=== PATIENT | male | born 1990 | race American Indian/Alaskan Native ===

== ENCOUNTER 2017-02-25 07:53 | Emergency (ER) | payer BC, OTHER ==
[2017-02-25 08:28] LABS: Basophils % (Auto) 1.1 % (0.0-1.8); Eosinophils % (Auto) 1.5 % (0.0-4.3); Hematocrit 48.3 % (35.5-45.6); Hemoglobin 16.5 gm/dl (11.8-15.2); Mean Corpuscular HGB Conc 34 % (32-34); Mean Corpuscular Hemoglobin 29 pg (28-32); Mean Corpuscular Volume 84 fl (84-94); Platelet Count 166 K/mm3 (140-440); Red Blood Count 5.72 M/mm3 (3.65-5.03); Red Cell Distribution Width 13.4 % (13.2-15.2); White Blood Count 5.9 K/mm3 (4.5-11.0)
[2017-02-25 08:47] LABS: Anion Gap 17 mmol/L; BUN/Creatinine Ratio 9.16; Blood Urea Nitrogen 11 mg/dL (9-20); Calcium 9.3 mg/dL (8.4-10.2); Carbon Dioxide 26 mmol/L (22-30); Chloride 102.2 mmol/L (98-107); Glucose 94 mg/dL (75-100); Potassium 3.9 mmol/L (3.6-5.0); Sodium 141 mmol/L (137-145)
[2017-02-25 09:10] LABS: Urine Drugs of Abuse Note Disclamer
[2017-02-25 09:28] LABS: Bilirubin,Urine NEG (Negative); Blood,Urine NEG (Negative); Ketones,Urine TR mg/dL (Negative); Leukocyte Esterase,Urine NEG (Negative); Nitrite,Urine NEG (Negative)
[2017-02-25 09:42] LABS: RBC,Urine < 1.0 /HPF (0.0-6.0); WBC,Urine < 1.0 /HPF (0.0-6.0)
--- NOTE | 2017-02-25 10:39 | Emergency Department Report ---
HPI - General Chief Complaint: Psych Time Seen by Provider: 02/25/17 10:00 - HPI HPI: This is a 26-year-old Afro-[place]rit[place] male presents to the emergency department with complaint of suicidal ideations and what he says is an attempt in which he held a gun up to his head. He denies any psychiatric diagnosed history of depression, bipolar disorder schizophrenia or anything else. He denies any past medical history. He says that he is just generally upset about "life." He has never been to a inpatient psychiatric facility. He does not have a primary care physician or a psychiatrist. Denies any tobacco abuse or any current alcohol use. He admits to marijuana smoking. ED Past Medical Hx - Past Medical History Previous Medical History?: Yes Additional medical history: irregular heart beat - Surgical History Additional Surgical History: shoulder - Social History Smoking Status: Never Smoker Substance Use Type: Marijuana - Medications Home Medications: Home Medications Medication Instructions Recorded Confirmed Last Taken Type No Known Home Medications [No 02/25/17 02/25/17 Unknown History Reported Home Medications] ED Review of Systems ROS: Stated complaint: EVALUATION Other details as noted in HPI Comment: All other systems reviewed and negative Constitutional: denies: chills, fever Eyes: denies: eye pain, eye discharge, vision change ENT: denies: ear pain, throat pain Respiratory: denies: cough, shortness of breath, wheezing Cardiovascular: denies: chest pain, palpitations Gastrointestinal: denies: abdominal pain, nausea, diarrhea Genitourinary: denies: urgency, dysuria Musculoskeletal: denies: back pain, joint swelling, arthralgia Skin: denies: rash, lesions Neurological: denies: headache, weakness, paresthesias Psychiatric: depression, suicidal thoughts. denies: auditory hallucinations, visual hallucinations, homicidal thoughts Physical Exam - Physical Exam Vital Signs: Vital Signs 02/25/17 02/25/17 07:58 08:48 Temperature 98.1 F Pulse Rate 73 Respiratory 18 18 Rate Blood Pressure 135/94 O2 Sat by Pulse 100 Oximetry Physical Exam: GENERAL: The patient is well-developed well-nourished. HEENT: Normocephalic. Atraumatic. Extraocular motions are intact. Patient has moist mucous membranes. Pupils equal reactive to light bilaterally. NECK: Supple. Trachea is midline. CHEST/LUNGS: Clear to auscultation. There is no respiratory distress noted. HEART/CARDIOVASCULAR: Regular. There is no tachycardia. There is no gallop rub or murmur. ABDOMEN: Abdomen is soft, nontender. Patient has normal bowel sounds. There is no abdominal distention. SKIN: Skin is warm and dry. NEURO: The patient is awake, alert, and oriented. The patient is cooperative. The patient has no focal neurologic deficits. The patient has normal speech. MUSCULOSKELETAL: There is no tenderness or deformity. There is no limitation range of motion. There is no evidence of acute injury. PSYCH: Flat affect. ED Course Vital Signs 02/25/17 02/25/17 07:58 08:48 Temperature 98.1 F Pulse Rate 73 Respiratory 18 18 Rate Blood Pressure 135/94 O2 Sat by Pulse 100 Oximetry ED Medical Decision Making - Lab Data Result diagrams: 02/25/17 08:11 02/25/17 08:11 - Medical Decision Making 26-year-old male presents to the emergency department with a complaint of suicidal ideations and questionable attempt in which she had a gun up to his head. He has visible flat affect and appears depressed. His vital signs and stable throughout his ED course. Labs do not show any etiology of the patient' s symptoms are most unremarkable. He is medically cleared for psychiatric placement and has been made a 1013 secondary to his suicidal ideations. - Differential Diagnosis depression, bipolar disorder, substance abuse, schizophrenia Critical Care Time: No Critical care attestation.: If time is entered above; I have spent that time in minutes in the direct care of this critically ill patient, excluding procedure time. ED Disposition Clinical Impression: Suicidal ideations Depression Qualifiers: Depression Type: unspecified Qualified Code(s): F32.9 - Major depressive disorder, single episode, unspecified Disposition: [id number]/[id number] PSY HOSP/PSY UNIT Is pt being admited?: No Condition: Stable Referrals: PRIMARY CARE [Primary Care Provider] - 3-5 Days Time of Disposition: 11:18
--- NOTE | 2017-02-25 16:33 | Consultation ---
History of Present Illness - Reason for Consult Consult date: 02/25/17 Reason for consult: psychiatric evaluation, suicidal ideation with a plan - Chief Complaint Chief complaint: "I have been confrontational" This is a 26-year-old Afro-[place]and[place] male presents to the emergency department with complaint of suicidal ideation. He states he held a gun to his head. He also states is not the first time he has done it. He reports he never previously told anyone. He has never received mental health treatment. No previous psychiatric hospitalizations. Rohini's been depressed since he spent in college. He reports feeling like a failure, depressed mood, poor appetite, decreased sleep, weight loss, and is quite guarded on exam. He graduated from college and he is employed at [employer]. Denies any current alcohol use. He admits to smoking marijuana. There is some spiritual preoccupation on exam but difficult to obtain additional information since he is guarded. He states that having mental health problems is an embarrassment. He did not make eye contact during the interview. He was dysphoric. He denies psychotic symptoms. Denies homicidal ideation. He states his mood is up and down but does not describe manic symptoms. Following information was obtained from the record and the patient reports the same: - Past Medical History Previous Medical History?: Yes Additional medical history: irregular heart beat - Surgical History Additional Surgical History: shoulder - Social History Smoking Status: Never Smoker Substance Use Type: Marijuana Medications and Allergies Allergies Allergy/AdvReac Type Severity Reaction Status Date / Time No Known Allergies Allergy Unverified 02/25/17 07:57 Home Medications Medication Instructions Recorded Confirmed Last Taken Type No Known Home Medications [No 02/25/17 02/25/17 Unknown History Reported Home Medications] Past psychiatric history - Social History Social history: other (family is his support) Mental Status Exam - Vital signs Last Vital Signs Temp 98.1 F 02/25/17 07:58 Pulse 73 02/25/17 07:58 Resp 18 02/25/17 08:48 BP 135/94 02/25/17 07:58 Pulse Ox 100 02/25/17 07:58 - Exam Orientation: time, place, person Affect: depressed, other (tearful) Mood: congruent with affect Thought content: other (suicidal ideation with a plan to shoot himself. No homicidal ideation. Spiritual references made) Thought Process: Circumstantial Perceptions: other (unable to obtain) Speech: normal rate and pattern Concentration: focused Motor activity: normal Level of consciousness: alert Memory: Intact Sleep Symptoms: Difficulty Falling Asleep Appetite: decreased Interaction: guarded Results Result Diagrams: 02/25/17 08:11 02/25/17 08:11 Abnormal lab results 02/25/17 Range/Units 08:11 RBC 5.72 H (3.65-5.03) M/mm3 Hgb 16.5 H (11.8-15.2) gm/dl Hct 48.3 H (35.5-45.6) % Lymph % (Auto) 51.6 H (13.4-35.0) % Seg Neutrophils % 39.3 L (40.0-70.0) % All other labs normal. Assessment and Plan Assessment and plan: Impression: Suicidal ideation with a plan to harm himself/he has means to harm himself Major depressive disorder, severe Cannabis use disorder (uses often) Differential diagnosis: Bipolar disorder current episode depressed Recommendation: 1013 and transfer to inpatient psychiatric facility Risks and benefits of antidepressants were discussed. The risk of untreated depression was also discussed with him. He is opposed to medication for depression. Will follow during his course of stay
[2017-02-25 19:26] VITALS: BP 146/83
== END 2017-02-25 23:05 ==
LOC: EEVIPCON 07:53 → ED 07:53
DX: R45.851 Suicidal ideations (principal); F32.9 Major depressive disorder, single episode, unspecified; F12.90 Cannabis use, unspecified, uncomplicated
CPT/HCPCS: 36415; 80048; 80307; 81001; 85025; 99285; G0480; 80320